=== PATIENT | female | born 1980 | race Two or more races ===

== ENCOUNTER → 2016-09-26 | Outpatient (CLI) | payer OTHER ==
--- NOTE | ~2016-09-26 | US6 ---
[facility] A Service of [facility] RADIOLOGY TEXT RESULTS PATIENT: MARCO AVALOS LOCATION: [facility] : 82 UNIT #: [id number] AGE: [address]: Beckie Luciano SEX: F ORDER DR: [id number] [address] [id number] O MR#: [id number] Acc #: [id number] NAME: VIRGIE AVALOS : 1980 SEX: F STUDY DATE/TIME: 09/26/2016 9:34 UNIT: [facility] ROOM: STUDY DESCRIPTION: US Abdominal Limited Attending Physician: Beckie Luciano A.P.R.N. Referring Physician: Beckie Luciano A.P.R.N. Ordering Physician: Beckie Luciano A.P.R.N. Primary Care Physician: Beckie Luciano A.P.R.N. MEDICAL IMAGING REPORT This report is preliminary unless electronic signature is present. EXAM Right upper quadrant abdominal ultrasound INDICATION Right upper quadrant abdominal pain for the past month. PROCEDURE Robertson-scale and Doppler imaging right upper quadrant of the abdomen. COMPARISON None FINDINGS Visualized portions of pancreas are unremarkable but portions are obscured by bowel gas. Liver measures 16.4 cm in length. The liver has slightly increased echotexture compared with the right kidney. Right kidney measures 12.7 cm and is normal. Unremarkable gallbladder. Common duct measures 3.0 mm. IMPRESSION 1. Slightly increased liver echotexture suspicious for mild steatosis. 2. Otherwise negative right upper quadrant ultrasound. Dictated by... Santosh Pierre M.D. THIS IS AN ELECTRONICALLY VERIFIED REPORT Santosh Pierre M.D. at 09/27/2016 7:12 AM Elaine TD: 09/26/2016 16:43 JOB #: [id number] [facility] A Service of [facility] RADIOLOGY TEXT RESULTS PATIENT: MARCO AVALOS LOCATION: [facility] #: [id number] : 82 UNIT #: [id number] AGE: [address]: Beckie Luciano SEX: F ORDER DR: MEDICAL IMAGING REPORT Page 1 of 1
== END | disposition home or self-care (01) ==
LOC: SGUS 09:02
DX: R10.13 Epigastric pain (principal)
CPT/HCPCS: 76705